=== PATIENT | female | born 1995 | race Caucasian/White ===

== ENCOUNTER 2023-10-23 08:49 | Emergency (ER) | payer MEDICAID ==
[~2023-10-23] VITALS: Ht 162.6 cm; Wt 91.0 kg
[2023-10-23 09:14] VITALS: O2SAT 98
[2023-10-23 10:55] VITALS: BP 128/90; PULSE 77; RESP 16; TEMP 36.72516; O2SAT 98
== END 2023-10-23 10:55 | disposition home or self-care (01) ==
LOC: ER 08:49
DX: S93.601A Unspecified sprain of right foot, initial encounter (principal); Z98.890 Other specified postprocedural states; X58.XXXA Exposure to other specified factors, initial encounter; Y93.89 Activity, other specified; Y92.89 Other specified places as the place of occurrence of the external cause; Y99.8 Other external cause status
CPT/HCPCS: 73630; 99283

== ENCOUNTER 2024-07-29 19:44 | Emergency (ER) | payer SELFPAY ==
[~2024-07-29] VITALS: Ht 165.1 cm; Wt 97.2 kg
[2024-07-29 19:52] VITALS: O2SAT 99
[2024-07-29] MEDS ORDERED: P50 MT (21:14)
[2024-07-29 21:21] VITALS: BP 125/77; PULSE 78; RESP 16; TEMP 36.8; O2SAT 100
== END 2024-07-29 21:22 | disposition home or self-care (01) ==
LOC: ER 19:44
DX: G51.0 Bell's palsy (principal); Z79.899 Other long term (current) drug therapy
CPT/HCPCS: 99284

== ENCOUNTER 2024-09-02 18:52 | Emergency (ER) | payer MEDICAID ==
[~2024-09-02] VITALS: Ht 167.6 cm; Wt 91.0 kg
[~2024-09-02 18:52] MED LIST: P50 MT
[2024-09-02 19:13] VITALS: TEMP 36.7; O2SAT 99
[2024-09-02 22:21] VITALS: TEMP 98.4
[2024-09-02] MEDS: ACETAMINOPHEN 325MG TABLET PO ONE (22:21)
[2024-09-03] MEDS ORDERED: IBUP-2028 MT (01:38)
[2024-09-03] MEDS ORDERED: AMOX1TAB16 MT (01:38)
[2024-09-03 02:10] VITALS: BP 106/66; PULSE 74; RESP 18; O2SAT 100
== END 2024-09-03 02:15 | disposition home or self-care (01) ==
LOC: ER 18:52
DX: H66.91 Otitis media, unspecified, right ear (principal); G51.0 Bell's palsy; Z98.890 Other specified postprocedural states; Z79.899 Other long term (current) drug therapy
CPT/HCPCS: 87070; 87430; 99283